=== PATIENT | female | born 1995 | race Caucasian/White ===

== ENCOUNTER → 2017-01-19 | Outpatient (REF) | payer BC | LOC: M LAB REF 16:35 | PROVIDERS: ATTEND Physician Assistant Medical | DX: J02.9 Acute pharyngitis, unspecified (principal) ==

== ENCOUNTER 2017-03-02 11:17 | Emergency (ER) | payer BC ==
[~2017-03-02] VITALS: Ht 157.5 cm; Wt 59.9 kg
[2017-03-02 11:18] VITALS: BP 147/79
[2017-03-02] MEDS ORDERED: NAPR500T PO (11:38)
== END 2017-03-02 11:51 | disposition home or self-care (01) ==
LOC: M ED 11:44
DX: G56.22 Lesion of ulnar nerve, left upper limb (principal)

== ENCOUNTER → 2017-03-20 | Outpatient (CLI) | payer BC ==
[~2017-03-20] MED LIST: NAPR500T PO
--- NOTE | 2017-03-21 09:08 | REP ---
MRI RIGHT FEMUR WITH AND WITHOUT CONTRAST: TECHNIQUE: Multiple sequences obtained pre- and post IV administration of 12 mL of Gadolinium. Reportedly there is a palpable abnormality anteriorly and the area is marked on the skin. Underlying soft tissues demonstrate no abnormal signal or enhancement. Musculature of the thigh is normal in signal with no tear. There is no cystic or solid or enhancing mass. The underlying femur demonstrates normal marrow signal with no bone marrow edema or occult fracture. There is no abnormal marrow enhancement. IMPRESSION: Negative MRI right thigh and femur with and without contrast. No evidence of mass. Signed by Augustus Chance MD 03/21/2017 03:11 P
== END ==
LOC: M RAD 17:17
PROVIDERS: ATTEND Specialist
DX: R22.41 Localized swelling, mass and lump, right lower limb (principal)
CPT/HCPCS: 73720; A9576

== ENCOUNTER → 2017-03-31 | Outpatient (CLI) | payer BC ==
[~2017-03-31] MED LIST changes: +DOXY-278 PO; +FLAG500T PO; +VALT1TAB PO
--- NOTE | 2017-04-02 13:59 | REP ---
MRI STUDY LEFT ELBOW WITHOUT CONTRAST: HISTORY: Left elbow pain. No known injury. Comparison radiographs are from March 18, 2017. There are TECHNIQUE: Sagittal axial and coronal imaging planes are utilized. T1 and T2-weighted scans were obtained with and without fat saturation. MRI FINDINGS: Cortical and medullary bone signal intensity are normal. There is no evidence of joint effusion. No osteochondral defect lesion is appreciated. There is no MR evidence of medial or lateral collateral ligament disruption. The triceps biceps and brachialis tendons are intact. No vascular abnormality is seen. Skeletal muscle signal intensity is normal on T1 and T2-weighted scans. There is no evidence of accessory muscle or ulnar nerve entrapment. IMPRESSION: No abnormality noted. Signed by Parish Szymanski MD 04/02/2017 05:03 P
== END ==
LOC: M RAD 13:22
PROVIDERS: ATTEND Specialist
DX: M25.522 Pain in left elbow (principal)

== ENCOUNTER → 2017-06-05 | Outpatient (REF) | payer BC | LOC: M LAB REF 09:40 | PROVIDERS: ATTEND Physician Assistant | DX: N39.0 Urinary tract infection, site not specified (principal) ==

== ENCOUNTER → 2017-06-24 | Outpatient (REF) | payer BC | LOC: M LAB REF 12:55 | PROVIDERS: ATTEND Physician Assistant Medical | DX: R30.0 Dysuria (principal) ==

== ENCOUNTER 2017-07-04 02:43 | Emergency (ER) | payer BC ==
[~2017-07-04] VITALS: Ht 157.5 cm; Wt 59.1 kg
[~2017-07-04 02:43] MED LIST changes: -DOXY-278 PO; -FLAG500T PO; -VALT1TAB PO
[2017-07-04 02:49] VITALS: BP 136/88
[2017-07-04] MEDS ORDERED: VALT1TAB PO (04:13)
[2017-07-04] MEDS ORDERED: DOXY-278 PO (04:13)
[2017-07-04] MEDS ORDERED: cefTRIAXone SOD 500 MG VIAL (J0696) IM ONE (04:15)
[2017-07-04] MEDS ORDERED: valACYclovir HCL 500 MG TAB PO ONE (04:15)
[2017-07-04] MEDS ORDERED: AZITHROMYCIN 250 MG TAB PO ONE (04:15)
[2017-07-04] MEDS ORDERED: FLAG500T PO (05:08)
== END 2017-07-04 05:31 | disposition home or self-care (01) ==
LOC: M ED 02:43
DX: A60.09 Herpesviral infection of other urogenital tract (principal); N76.0 Acute vaginitis
CPT/HCPCS: 81001; 87088; 87210; 87255; 87491; 87591; 96372; 99282; J0696

== ENCOUNTER → 2018-02-09 | Outpatient (REF) | payer BC ==
[2018-02-09 17:20] LABS: INR 0.96; PROTHROMBIN TIME 12.9 SECONDS (12.4-14.5)
[2018-02-09 17:21] LABS: PARTIAL THROMBOPLASTIN TIME 30.4 SECONDS (26.8-37.9)
[2018-02-09 18:09] LABS: SLIDE REVIEW Report; SOURCE PERIPHERAL SMEAR
== END ==
LOC: M LAB REF 16:40
DX: K06.8 Other specified disorders of gingiva and edentulous alveolar ridge (principal)
CPT/HCPCS: 85610

== ENCOUNTER → 2018-11-17 | Outpatient (REF) | payer BC ==
[~2018-11-17] MED LIST changes: +DOXY-350 PO; +FLAG500T PO; +NAPR-50 PO; -NAPR500T PO; +VALT1TAB PO
[2018-11-17 20:40] LABS: BASO % 0.3 % (0.0-1.0); EOS % 0.3 % (0.0-3.0); HEMATOCRIT 38.4 % (36.0-47.0); HEMOGLOBIN 13.1 g/dl (12.0-15.5); LYMPH # 1.4 10^3/uL (1.5-6.5); LYMPH % 14.6 % (24.0-44.0); MEAN CORPUSCULAR HEMOGLOBIN 29.4 pg (27.0-33.0); MEAN CORPUSCULAR HGB CONC 34.1 g/dl (32.0-36.5); MEAN CORPUSCULAR VOLUME 86.1 fl (80.0-96.0); MONO # 0.5 10^3/uL (0.0-0.8); NEUTROPHILS # 7.6 10^3/uL (1.8-7.7); NEUTROPHILS % 79.5 % (36.0-66.0); PLATELET COUNT, AUTOMATED 289 10^3/uL (150-450); RED BLOOD COUNT 4.46 10^6/uL (4.00-5.40); WHITE BLOOD COUNT 9.6 10^3/uL (4.0-10.0)
[2018-11-17 23:16] LABS: CHLAMYDIA DNA AMPLIFICATION NEGATIVE (NEGATIVE); GC DNA AMPLIFICATION NEGATIVE (NEGATIVE)
[2018-11-18 10:10] LABS: HEPATITIS C VIRUS ABY INDEX < 0.0 INDEX (<0.8); HIV 1&2 SCREEN CENTAUR NEGATIVE (NEGATIVE); RUBELLA IgG QUALITATIVE IMMUNE (IMMUNE)
== END ==
LOC: M LABDRWAD 19:10
PROVIDERS: ATTEND Advanced Practice Midwife
DX: Z3A.08 8 weeks gestation of pregnancy (principal); Z34.81 Encounter for supervision of other normal pregnancy, first trimester

== ENCOUNTER → 2019-01-25 | Outpatient (CLI) | payer BC ==
[~2019-01-25] MED LIST changes: -NAPR-50 PO; +NAPR-837 PO
--- NOTE | 2019-01-26 03:24 | REP ---
Clinical: Anatomical evaluation. Comparison: None . Findings: Examination demonstrates a single live intrauterine in cephalic presentation. motion is identified by technologist. Placenta is noted posterior fundal and grade grade 1 without evidence for placenta previa or abruption. Amniotic fluid volume is normal. Cervix measures 2.8 cm in length and appears closed. No evidence for nuchal cord. Gestational age by LMP 20 weeks 5 days with JULI 06/09/2019 . Gestational age by current measurements 20 weeks 3 days with JULI 06/11/2019 . FHR equals 156 beats per minute. BPD 4.8 cm 20 weeks 3 days HC 18.0 cm 20 weeks 3 days AC 15.6 cm 20 weeks 5 days FL 3.3 cm 20 weeks 3 days HL 3.1 cm 20 weeks 2 days HC/AC ratio 1.15 Estimated weight or 364 grams ( 43rd percentile). Anatomical assessment demonstrates normal structures including cranium, choroid plexus, cavum, cerebellum/posterior fossa, facial features, lungs, four-chamber heart/ventricular outflow tracts, diaphragm, stomach, cord insertion/three-vessel cord, kidneys/bladder, spine, and extremities. A trace amount of pericardial fluid is identified. Impression: 1. Single live intrauterine in cephalic presentation demonstrating appropriate interval growth. 2. Trace amount of pericardial fluid is identified. Anatomical assessment is otherwise complete and within normal limits. Electronically Signed by Freedom Iglesias MD 01/26/2019 03:15 A
== END ==
LOC: M RAD 14:13
PROVIDERS: ATTEND Specialist
DX: Z34.82 Encounter for supervision of other normal pregnancy, second trimester (principal); Z3A.00 Weeks of gestation of pregnancy not specified

== ENCOUNTER → 2019-02-05 | Outpatient (REF) | payer BC | LOC: M LAB REF 12:13 | PROVIDERS: ATTEND Physician Assistant Medical | DX: J02.9 Acute pharyngitis, unspecified (principal) ==

== ENCOUNTER → 2019-03-02 | Outpatient (CLI) | payer BC ==
[2019-03-02 18:36] LABS: BASO % 0.3 % (0.0-1.0); EOS # 0.1 10^3/uL (0.0-0.50); EOS % 1.3 % (0.0-3.0); HEMATOCRIT 34.6 % (36.0-47.0); HEMOGLOBIN 11.7 g/dl (12.0-15.5); LYMPH # 1.1 10^3/uL (1.5-6.5); LYMPH % 12.1 % (24.0-44.0); MEAN CORPUSCULAR HEMOGLOBIN 31.5 pg (27.0-33.0); MEAN CORPUSCULAR HGB CONC 33.8 g/dl (32.0-36.5); MONO # 0.5 10^3/uL (0.0-0.8); MONO % 5.6 % (0.0-5.0); NEUTROPHILS # 7.3 10^3/uL (1.8-7.7); NEUTROPHILS % 80.3 % (36.0-66.0); PLATELET COUNT, AUTOMATED 302 10^3/uL (150-450); RED BLOOD COUNT 3.72 10^6/uL (4.00-5.40); WHITE BLOOD COUNT 9.2 10^3/uL (4.0-10.0)
== END ==
LOC: M SMT 13:09
PROVIDERS: ATTEND Specialist
DX: Z34.82 Encounter for supervision of other normal pregnancy, second trimester (principal); Z36.89 Encounter for other specified antenatal screening
CPT/HCPCS: 36415; 82950; 85025; 86850; 86900; 86901; J2790

== ENCOUNTER → 2019-04-06 | Outpatient (REF) | payer BC ==
[2019-04-06 19:48] LABS: APPEARANCE, URINE HAZY (CLEAR); BACTERIA, URINE AUTO 2+ (NEGATIVE); BILIRUBIN, URINE AUTO NEGATIVE (NEGATIVE); BLOOD, URINE BLOOD 1+ (NEGATIVE); COLOR, URINE YELLOW (YELLOW); GLUCOSE, URINE (UA) AUTO NEGATIVE (NEGATIVE); KETONE, URINE AUTO NEGATIVE (NEGATIVE); LEUKOCYTE ESTERASE, URINE AUTO TRACE (NEGATIVE); MUCUS, URINE SMALL (NEGATIVE); NITRITE, URINE AUTO NEGATIVE (NEGATIVE); PROTEIN, URINE AUTO NEGATIVE (NEGATIVE); RBC, URINE AUTO 4 /HPF (0-3); SPECIFIC GRAVITY URINE AUTO 1.009 (1.002-1.035); SQUAMOUS EPITHELIAL CELL UR AU 2 /HPF (0-6); UROBILINOGEN, URINE AUTO 0.2 mg/dL (0.0-2.0); WBC, URINE AUTO 21 /HPF (0-3)
== END ==
LOC: M LAB REF 17:34
PROVIDERS: ATTEND Obstetrics & Gynecology
DX: M54.5 Low back pain (principal)

== ENCOUNTER → 2019-04-07 | Outpatient (CLI) | payer BC ==
--- NOTE | 2019-04-07 07:23 | REP ---
Clinical: Lower back pain. Technique: Real time patricio scale and color evaluation using curved array transducer. Findings: Right kidney is normal in reniform shape and measures 10.4 x 4.8 x 5.0 cm with moderate hydronephrosis. No nephrolithiasis, cystic or mass lesion. RI 0.59. Left kidney is normal in reniform shape and measures 10.4 x 4.5 x 5.5 cm with mild hydronephrosis. No nephrolithiasis, cystic or mass lesion. RI 0.41. Bladder is unremarkable. The patient is noted to be 31 weeks . Impression: Bilateral hydronephrosis (right greater than left) likely induced. Electronically Signed by Freedom Iglesias MD 04/07/2019 07:14 A
== END ==
LOC: M RAD 05:58
PROVIDERS: ATTEND Obstetrics & Gynecology
DX: N13.30 Unspecified hydronephrosis (principal); M54.5 Low back pain

== ENCOUNTER → 2019-04-27 | Outpatient (REF) | payer BC | LOC: M LAB REF 13:02 | PROVIDERS: ATTEND Advanced Practice Midwife | DX: Z34.83 Encounter for supervision of other normal pregnancy, third trimester (principal) ==

== ENCOUNTER → 2019-05-11 | Outpatient (REF) | payer BC ==
[~2019-05-11] MED LIST changes: +COLA100C5 PO; +IBUP80TA PO; +PERCOCET PO; +PREN29TA4 PO; +RANI15TA PO; +URSO300C3 PO
== END ==
LOC: M LAB REF 17:49
PROVIDERS: ATTEND Advanced Practice Midwife
DX: Z34.83 Encounter for supervision of other normal pregnancy, third trimester (principal)

== ENCOUNTER → 2019-05-13 | Outpatient (CLI) | payer BC ==
[~2019-05-13] MED LIST changes: -COLA100C5 PO; -IBUP80TA PO; -PERCOCET PO; -URSO300C3 PO
[2019-05-13 10:28] LABS: ALBUMIN 2.6 GM/DL (3.2-5.2); BASO % 0.6 % (0.0-1.0); BILIRUBIN,DIRECT 0.2 MG/DL (0.0-0.2); BILIRUBIN,TOTAL 0.6 MG/DL (0.2-1.0); EOS # 0.1 10^3/uL (0.0-0.50); EOS % 0.7 % (0.0-3.0); HEMATOCRIT 32.6 % (36.0-47.0); LYMPH # 1.1 10^3/uL (1.5-6.5); LYMPH % 16.2 % (24.0-44.0); MEAN CORPUSCULAR HEMOGLOBIN 28.4 pg (27.0-33.0); MEAN CORPUSCULAR HGB CONC 33.7 g/dl (32.0-36.5); MONO # 0.6 10^3/uL (0.0-0.8); MONO % 8.2 % (0.0-5.0); NEUTROPHILS # 5.1 10^3/uL (1.8-7.7); NEUTROPHILS % 73.9 % (36.0-66.0); PLATELET COUNT, AUTOMATED 292 10^3/uL (150-450); RED BLOOD COUNT 3.88 10^6/uL (4.00-5.40); TOTAL PROTEIN 6.5 GM/DL (6.4-8.2); WHITE BLOOD COUNT 6.9 10^3/uL (4.0-10.0)
== END ==
LOC: M LAB 09:11
PROVIDERS: ATTEND Advanced Practice Midwife
DX: L29.9 Pruritus, unspecified (principal)

== ENCOUNTER 2019-05-28 07:22 | Inpatient (IN) | payer BC, MEDICAID ==
[~2019-05-28] VITALS: Ht 157.5 cm; Wt 62.4 kg
[~2019-05-28 07:22] MED LIST changes: +MORPHINE PRES-FREE INJ 10 MG/10 ML VIAL (J2274) As Ordered ONE; +OXYTOCIN INJ 10 UNITS/ML VIAL (J2590) As Ordered ONE
[2019-05-28] MEDS ORDERED: URSO300C3 PO (07:51)
[2019-05-28] MEDS ORDERED: LR 1,000 ML IV SCH ×2 (08:13→11:15)
[2019-05-28] MEDS ORDERED: LACTATED RINGER'S 1000 ML IV STA (08:13)
[2019-05-28 08:38] LABS: HEMATOCRIT 32.9 % (36.0-47.0); HEMOGLOBIN 10.9 g/dl (12.0-15.5); MEAN CORPUSCULAR HEMOGLOBIN 27.3 pg (27.0-33.0); MEAN CORPUSCULAR HGB CONC 33.1 g/dl (32.0-36.5); MEAN CORPUSCULAR VOLUME 82.5 fl (80.0-96.0); PLATELET COUNT, AUTOMATED 298 10^3/uL (150-450); RED BLOOD COUNT 3.99 10^6/uL (4.00-5.40); WHITE BLOOD COUNT 7.1 10^3/uL (4.0-10.0)
[2019-05-28] MEDS ORDERED: BICITRA 30ML SOLN UDC PO ONE (09:00)
[2019-05-28] MEDS ORDERED: NALBUPHINE HCL 10 MG/ML AMP (J2300) IV PRN (09:34)
[2019-05-28] MEDS ORDERED: diphenhydrAMINE INJ 50MG/ML VIAL (J1200) IV PRN (09:34)
[2019-05-28] MEDS ORDERED: ONDANSETRON 4MG/2ML VIAL (J2405) IV PRN ×3 (09:34→11:15)
[2019-05-28] MEDS ORDERED: NALOXONE INJ 0.4 MG/1 ML VIAL (J2310) IV PRN ×2 (09:34)
[2019-05-28] MEDS ORDERED: OXYTOCIN DRIP 30 UNITS in APPROPRIATE DILUENT 1 EA IV SCH (10:36)
[2019-05-28] MEDS ORDERED: PERCOCET 5MG/325MG TAB PO PRN (10:45)
[2019-05-28] MEDS ORDERED: RHOGAM 300 MCG (1500 IU) INJ (J2790) IM SCH (10:45)
[2019-05-28] MEDS ORDERED: PROMETHAZINE 25 MG TAB PO PRN (10:45)
[2019-05-28] MEDS ORDERED: MEASLES,MUMPS,RUBELLA VACCINE INJ (MMR-II) (90707) SC SCH (10:45)
[2019-05-28] MEDS ORDERED: ACETAMINOPHEN 500 MG TAB PO PRN (10:45)
[2019-05-28] MEDS ORDERED: COLA100C5 PO (10:53)
[2019-05-28] MEDS ORDERED: IBUP80TA PO (10:53)
[2019-05-28] MEDS ORDERED: PERCOCET PO (10:53)
[2019-05-28] MEDS ORDERED: OXYTOCIN 30 UNITS IN 0.9% NaCl 500ML IV BAG (J2590) As Ordered ONE (11:05)
[2019-05-28] MEDS ORDERED: KETOROLAC 30 MG/ML VIAL (J1885) IV PRN (11:15)
[2019-05-28] MEDS ORDERED: ACETAMINOPHEN TAB 650MG DOSE (2X325MG) PO PRN (11:15)
[2019-05-28] MEDS ORDERED: oxyCODONE 5MG TAB PO PRN (11:15)
[2019-05-28] MEDS ORDERED: fentaNYL 100 MCG/2 ML INJECTION (J3010) As Ordered ONE (11:35)
[2019-05-28] MEDS: fentaNYL 100 MCG/2 ML INJECTION (J3010) IV PRN ×3 (11:40→11:53)
[2019-05-28] MEDS ORDERED: KETOROLAC 30 MG/ML VIAL (J1885) As Ordered ONE (11:47)
[2019-05-28] MEDS: KETOROLAC 30 MG/ML VIAL (J1885) IV SCH ×2 (11:50→18:11)
[2019-05-28] MEDS: LR 1,000 ML IV SCH ×2 (12:07→20:33)
[2019-05-28 12:30] VITALS: BP 135/78
[2019-05-28 13:00] VITALS: BP 128/80
[2019-05-28] MEDS: METOCLOPRAMIDE INJ 10MG/2ML VIAL (J2765) IV PRN ×2 (13:49→20:32)
[2019-05-28 14:01] VITALS: BP 128/58
[2019-05-28 15:00] VITALS: BP 105/54
[2019-05-28 18:00] VITALS: BP 120/64
[2019-05-28] MEDS: DOCUSATE SODIUM 100 MG CAP PO SCH (20:33)
[2019-05-28 22:00] VITALS: BP 107/66
[2019-05-29] MEDS: KETOROLAC 30 MG/ML VIAL (J1885) IV SCH ×2 (00:15→05:51)
[2019-05-29 02:00] VITALS: BP 102/70
[2019-05-29] MEDS: LR 1,000 ML IV SCH (03:28)
[2019-05-29 06:00] VITALS: BP 102/58
[2019-05-29 06:59] LABS: HEMATOCRIT 26.3 % (36.0-47.0); MEAN CORPUSCULAR HEMOGLOBIN 27.9 pg (27.0-33.0); MEAN CORPUSCULAR HGB CONC 32.3 g/dl (32.0-36.5); MEAN CORPUSCULAR VOLUME 86.2 fl (80.0-96.0); PLATELET COUNT, AUTOMATED 199 10^3/uL (150-450); RED BLOOD COUNT 3.05 10^6/uL (4.00-5.40); WHITE BLOOD COUNT 8.3 10^3/uL (4.0-10.0)
[2019-05-29 07:05] LABS: HEMOGLOBIN 8.5 g/dl (12.0-15.5)
--- NOTE | 2019-05-29 08:47 | IPNPDOC ---
Text Note Date of Service The patient was seen on 05/29/19. NOTE Postop Day 1 s/p primary LTCS; complicated by intrahepatic cholestasis of , history of neurosurgery; Valsalva maternal pushing efforts contraindicated S: No events overnight. Pain well controlled, lochia and bleeding decreasing, voiding spontaneously, ambulating without assistance, tolerating regular diet.Breast feeding. O: vitals stable Heart: RRR, no murmurs/gallops/rubs Lungs: CTA BL Abd: U-1 and firm Ext: no edema, nontender, Meghana's negative bilaterally A/P: 23 yo G1 now P1. day 1 s/p primary LTCS. Currently hemodynamically stable, afebrile, good pain control. Recovering well. -Routine care and advancement -Anticipate discharge tomorrow VS,Fishbone, I+O VS, Fishbone, I+O Laboratory Tests 05/29/19 06:15 Red Blood Count 3.05 L, Mean Corpuscular Volume 86.2, Mean Corpuscular Hemogl obin 27.9, Mean Corpuscular Hemoglobin Concent 32.3, Red Cell Distribution Width 12.3 Vital Signs Date Time Temp Pulse Resp B/P (MAP) Pulse Ox O2 Delivery O2 Flow Rate FiO2 05/29/19 06:00 99.9 73 16 102/58 (73) 97 I&O- Last 24 Hours up to 6 AM 05/29/19 05:59 Intake Total 2660 ml Output Total 1900 ml Balance 760 ml GME ATTESTATION GME ATTESTATION My faculty preceptor for this patient encounter was physically present during the encounter and was fully available. All aspects of the patient interview, examination, medical decision making process, and medical care plan development were reviewed and approved by the faculty preceptor. The faculty preceptor is aware and concurs with the plan as stated in the body of this note and will attest to such by his/her cosignature. STACEY GREEN DO May 29, 2019 08:47
[2019-05-29] MEDS: PRENATAL VITAMINS CHEWABLE TABLET PO SCH (09:00)
[2019-05-29] MEDS: DOCUSATE SODIUM 100 MG CAP PO SCH ×2 (09:29→21:44)
[2019-05-29] MEDS: PERCOCET 5MG/325MG TAB PO PRN (12:17)
[2019-05-29 14:00] VITALS: BP 114/77
[2019-05-29] MEDS: IBUPROFEN 800 MG TAB PO SCH ×2 (15:17→21:55)
[2019-05-29 18:26] VITALS: BP 114/74
[2019-05-29] MEDS ORDERED: SIMETHICONE 80 MG CHEW TAB PO PRN (21:15)
[2019-05-29 22:46] VITALS: BP 129/84
[2019-05-30] MEDS: PERCOCET 5MG/325MG TAB PO PRN ×2 (00:53→15:40)
[2019-05-30 02:19] VITALS: BP 113/69
[2019-05-30] MEDS: IBUPROFEN 800 MG TAB PO SCH ×2 (05:38→13:26)
[2019-05-30 05:40] VITALS: BP 131/81
[2019-05-30] MEDS: PRENATAL VITAMINS CHEWABLE TABLET PO SCH (10:45)
[2019-05-30] MEDS: DOCUSATE SODIUM 100 MG CAP PO SCH (10:45)
--- NOTE | 2019-05-30 14:41 | DSES ---
DATE OF ADMISSION: 05/28/2019 DATE OF DISCHARGE: HISTORY: 23-year-old G1 at 38 plus weeks gestation presents for primary section. 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 It was requested by her neurosurgeon that she not labor due to risk of brain injury. HOSPITAL COURSE: On 05/28/2019, the patient underwent primary section for a 6-auklu-7-ounce female . The procedure was without complication. Her postoperative course was unremarkable. She had adequate return of bladder and bowel function. Her postoperative hemoglobin was 8.5 gm/dL. She was deemed stable for discharge on postoperative day #2. ADMISSION DIAGNOSIS: , term. History of intracranial surgery. DISCHARGE DIAGNOSIS: Delivered. PROCEDURE: Primary low transverse section. DISPOSITION: Patient will followup with Dr. Loaiza in 2 weeks. Instructions were reviewed.
== END 2019-05-30 17:30 | disposition home or self-care (01) | DRG 540 ==
LOC: M LDI 07:22 → M OBS 12:19
PROVIDERS: ADMIT Obstetrics & Gynecology; ATTEND Obstetrics & Gynecology
PROC: 10D00Z1 Extraction of Products of Conception, Low, Open Approach (ICD-10-PCS; principal; 2019-05-28 09:30)
DX: O26.62 Liver and biliary tract disorders in childbirth (principal); Z3A.38 38 weeks gestation of pregnancy; Z37.0 Single live birth; Z87.74 Personal history of (corrected) congenital malformations of heart and circulatory system

== ENCOUNTER → 2021-01-15 | Outpatient (REF) | payer BC, MEDICAID ==
[~2021-01-15] MED LIST changes: +COLA100C5 PO; +IBUP80TA PO; -MORPHINE PRES-FREE INJ 10 MG/10 ML VIAL (J2274) As Ordered ONE; -OXYTOCIN INJ 10 UNITS/ML VIAL (J2590) As Ordered ONE; +PERCOCET PO; +URSO300C3 PO
[2021-01-17 15:04] LABS: CHLAMYDIA DNA AMPLIFICATION NEGATIVE (NEGATIVE); GC DNA AMPLIFICATION NEGATIVE (NEGATIVE)
== END ==
LOC: M LAB REF 13:16 → M SFHCWAGY 13:16
PROVIDERS: ATTEND Obstetrics & Gynecology
DX: Z12.4 Encounter for screening for malignant neoplasm of cervix (principal); Z11.3 Encounter for screening for infections with a predominantly sexual mode of transmission; R87.610 Atypical squamous cells of undetermined significance on cytologic smear of cervix (ASC-US)
CPT/HCPCS: 87624; 87661; G0123

== ENCOUNTER → 2022-10-08 | Outpatient (CLI) | payer BC, MEDICAID ==
[~2022-10-08] MED LIST changes: -DOXY-350 PO; +DOXY-444 PO
== END ==
LOC: M PLALAB 14:50
PROVIDERS: ATTEND Obstetrics & Gynecology
DX: Z34.80 Encounter for supervision of other normal pregnancy, unspecified trimester (principal)

== ENCOUNTER → 2022-10-09 | Outpatient (CLI) | payer BC, MEDICAID ==
[2022-10-09 15:26] LABS: HEMATOCRIT 40.6 % (36.0-47.0); HEMOGLOBIN 13.9 g/dl (12.0-15.5); MEAN CORPUSCULAR HGB CONC 34.2 g/dl (32.0-36.5); MEAN CORPUSCULAR VOLUME 84.8 fl (80.0-96.0); PLATELET COUNT, AUTOMATED 322 10^3/uL (150-450); RED BLOOD COUNT 4.79 10^6/uL (4.00-5.40); WHITE BLOOD COUNT 10.8 10^3/uL (4.0-10.0)
[2022-10-09 16:25] LABS: HIV 1&2 SCREEN CENTAUR NEGATIVE (NEGATIVE)
[2022-10-09 16:33] LABS: HEPATITIS C VIRUS ABY INDEX 0.1 INDEX (<0.8)
[2022-10-09 17:12] LABS: GC DNA AMPLIFICATION NEGATIVE (NEGATIVE)
== END ==
LOC: M PLALAB 12:57
PROVIDERS: ATTEND Obstetrics & Gynecology
DX: Z34.80 Encounter for supervision of other normal pregnancy, unspecified trimester (principal)

== ENCOUNTER → 2022-12-10 | Outpatient (CLI) | payer BC | LOC: M WHC 07:22 | PROVIDERS: ATTEND Advanced Practice Midwife | DX: O34.211 Maternal care for low transverse scar from previous cesarean delivery (principal); O32.1XX0 Maternal care for breech presentation, not applicable or unspecified; Z3A.21 21 weeks gestation of pregnancy ==

== ENCOUNTER → 2022-12-25 | Outpatient (CLI) | payer BC | LOC: M RAD 15:09 | PROVIDERS: ATTEND Student in an Organized Health Care Education/Training Program | DX: R22.42 Localized swelling, mass and lump, left lower limb (principal) ==

== ENCOUNTER → 2022-12-25 | Outpatient (CLI) | payer BC | LOC: M WUC 14:14 | PROVIDERS: ATTEND Student in an Organized Health Care Education/Training Program | DX: M79.672 Pain in left foot (principal) ==

== ENCOUNTER → 2022-12-26 | Outpatient (REF) | payer BC ==
[2022-12-26 17:50] LABS: HEMATOCRIT 39.1 % (36.0-47.0); HEMOGLOBIN 13.1 g/dl (12.0-15.5); MEAN CORPUSCULAR HEMOGLOBIN 29.9 pg (27.0-33.0); MEAN CORPUSCULAR HGB CONC 33.5 g/dl (32.0-36.5); MEAN CORPUSCULAR VOLUME 89.3 fl (80.0-96.0); PLATELET COUNT, AUTOMATED 362 10^3/uL (150-450); RED BLOOD COUNT 4.38 10^6/uL (4.00-5.40); WHITE BLOOD COUNT 15.1 10^3/uL (4.0-10.0)
[2022-12-26 18:10] LABS: BLOOD UREA NITROGEN 6 MG/DL (9-23); CARBON DIOXIDE LEVEL 28 MMOL/L (20-31); CHLORIDE LEVEL 103 MMOL/L (98-107); CREATININE FOR GFR 0.46 MG/DL (0.55-1.30); GLOMERULAR FILTRATION RATE > 60.0 (>60); GLUCOSE, FASTING 70 MG/DL (60-100); POTASSIUM SERUM 5.2 MMOL/L (3.5-5.1); SODIUM LEVEL 136 MMOL/L (136-145)
== END ==
LOC: M SFHCADAM 14:18
PROVIDERS: ATTEND Family Medicine
DX: M10.9 Gout, unspecified (principal)

== ENCOUNTER → 2023-01-13 | Outpatient (CLI) | payer BC ==
[2023-01-13 15:52] LABS: HEMATOCRIT 37.3 % (36.0-47.0); HEMOGLOBIN 12.1 g/dl (12.0-15.5); MEAN CORPUSCULAR HEMOGLOBIN 29.7 pg (27.0-33.0); MEAN CORPUSCULAR HGB CONC 32.4 g/dl (32.0-36.5); MEAN CORPUSCULAR VOLUME 91.4 fl (80.0-96.0); PLATELET COUNT, AUTOMATED 284 10^3/uL (150-450); RED BLOOD COUNT 4.08 10^6/uL (4.00-5.40); WHITE BLOOD COUNT 10.3 10^3/uL (4.0-10.0)
== END ==
LOC: M PLALAB 09:32
PROVIDERS: ATTEND Obstetrics & Gynecology
DX: O34.211 Maternal care for low transverse scar from previous cesarean delivery (principal); Z3A.00 Weeks of gestation of pregnancy not specified
CPT/HCPCS: 36415; 82950; 85027; 86850; 86900; 86901; J2790

== ENCOUNTER → 2023-02-21 | Outpatient (CLI) | payer BC ==
[2023-02-21 16:25] LABS: APPEARANCE, URINE CLEAR (CLEAR); BACTERIA, URINE AUTO NEGATIVE (NEGATIVE); BILIRUBIN, URINE AUTO NEGATIVE (NEGATIVE); BLOOD, URINE BLOOD NEGATIVE (NEGATIVE); COLOR, URINE AMBER (YELLOW); GLUCOSE, URINE (UA) AUTO NEGATIVE (NEGATIVE); KETONE, URINE AUTO NEGATIVE (NEGATIVE); LEUKOCYTE ESTERASE, URINE AUTO 1+ (NEGATIVE); MUCUS, URINE SMALL (NEGATIVE); NITRITE, URINE AUTO NEGATIVE (NEGATIVE); PROTEIN, URINE AUTO NEGATIVE (NEGATIVE); RBC, URINE AUTO 1 /HPF (0-3); SPECIFIC GRAVITY URINE AUTO 1.006 (1.002-1.035); SQUAMOUS EPITHELIAL CELL UR AU 0 /HPF (0-6); UROBILINOGEN, URINE AUTO 0.2 mg/dL (0.0-2.0); WBC, URINE AUTO 6 /HPF (0-3)
[2023-02-21 16:47] LABS: HEMATOCRIT 35.6 % (36.0-47.0); HEMOGLOBIN 11.8 g/dl (12.0-15.5); MEAN CORPUSCULAR HGB CONC 33.1 g/dl (32.0-36.5); MEAN CORPUSCULAR VOLUME 87.5 fl (80.0-96.0); PLATELET COUNT, AUTOMATED 255 10^3/uL (150-450); RED BLOOD COUNT 4.07 10^6/uL (4.00-5.40); WHITE BLOOD COUNT 6.3 10^3/uL (4.0-10.0)
[2023-02-21 16:53] LABS: ALBUMIN 2.6 G/DL (3.2-5.2); BILIRUBIN,DIRECT 0.6 MG/DL (<0.4); BILIRUBIN,TOTAL 1.1 MG/DL (0.3-1.2); TOTAL PROTEIN 6.2 G/DL (5.7-8.2)
== END ==
LOC: M PLALAB 13:58
PROVIDERS: ATTEND Advanced Practice Midwife
DX: L29.9 Pruritus, unspecified (principal)

== ENCOUNTER → 2023-03-05 | Outpatient (CLI) | payer BC | LOC: M WHC 12:56 | PROVIDERS: ATTEND Advanced Practice Midwife | DX: O26.613 Liver and biliary tract disorders in pregnancy, third trimester (principal); K83.1 Obstruction of bile duct; Z3A.33 33 weeks gestation of pregnancy ==

== ENCOUNTER → 2023-03-14 | Outpatient (REF) | payer BC | LOC: M SFHCWAGY 13:00 | PROVIDERS: ATTEND Advanced Practice Midwife | DX: Z36.85 Encounter for antenatal screening for Streptococcus B (principal) ==

== ENCOUNTER → 2023-03-21 | Outpatient (CLI) | payer BC ==
[~2023-03-21] MED LIST changes: +MULTTAB20 PO; +VALT500T PO; +VIST25CA PO
== END ==
LOC: M WHC 12:00
PROVIDERS: ATTEND Advanced Practice Midwife
DX: K83.1 Obstruction of bile duct (principal)

== ENCOUNTER 2023-04-02 07:08 | Inpatient (IN) | payer BC ==
[~2023-04-02] VITALS: Ht 157.5 cm; Wt 65.7 kg
[2023-04-02] VITALS (8 sets, daily range): BP systolic 100–144; BP diastolic 57–100; TEMP 98.9; O2SAT 96–97
[2023-04-02] MEDS ORDERED: LACTATED RINGER'S 1000 ML IV STA (07:46)
[2023-04-02] MEDS ORDERED: BICITRA 30ML SOLN UDC PO ONE (07:50)
[2023-04-02] MEDS ORDERED: ceFAZolin SOD 2 GM in IV 1 EA IV ONE (07:50)
[2023-04-02] MEDS ORDERED: LR 1,000 ML IV SCH ×2 (07:50→11:20)
[2023-04-02 07:59] LABS: HEMATOCRIT 36.5 % (36.0-47.0); HEMOGLOBIN 12.3 g/dl (12.0-15.5); MEAN CORPUSCULAR HEMOGLOBIN 27.5 pg (27.0-33.0); MEAN CORPUSCULAR HGB CONC 33.7 g/dl (32.0-36.5); MEAN CORPUSCULAR VOLUME 81.5 fl (80.0-96.0); PLATELET COUNT, AUTOMATED 265 10^3/uL (150-450); RED BLOOD COUNT 4.48 10^6/uL (4.00-5.40); WHITE BLOOD COUNT 6.1 10^3/uL (4.0-10.0)
[2023-04-02] MEDS: DOCUSATE SODIUM 100MG CAPSULE PO SCH ×2 (09:00→19:57)
[2023-04-02] MEDS: PRENATAL VITAMINS CHEWABLE TABLET PO SCH (09:00)
[2023-04-02] MEDS ORDERED: OXYTOCIN INJ 10UNITS/ML 1ML VIAL As Ordered ONE (09:48)
[2023-04-02] MEDS ORDERED: ONDANSETRON 4MG 2ML VIAL As Ordered ONE (09:48)
[2023-04-02] MEDS ORDERED: MORPHINE PRES-FREE INJ 10 MG/10 ML VIAL As Ordered ONE (09:48)
[2023-04-02] MEDS ORDERED: KETOROLAC 60MG 2ML VIAL As Ordered ONE (09:48)
[2023-04-02] MEDS ORDERED: OXYTOCIN 30UNITS IN 0.9% NaCl 500ML IV BAG As Ordered ONE ×2 (09:49→11:31)
[2023-04-02] MEDS ORDERED: ACETAMINOPHEN 1000MG 100ML IV BAG As Ordered ONE (09:49)
[2023-04-02] MEDS ORDERED: PHENYLephrine 500MCG 5ML (100MCG/ML) SYRINGE As Ordered ONE ×2 (09:49→10:24)
[2023-04-02] MEDS ORDERED: GLYCOPYRROLATE INJ 0.2 MG/ML 2 ML VIAL As Ordered ONE (10:23)
[2023-04-02] MEDS ORDERED: MORPHINE 4 MG/ML 1ML VIAL IV PRN (11:20)
[2023-04-02] MEDS ORDERED: ONDANSETRON 4MG 2ML VIAL IV PRN ×2 (11:20→11:35)
[2023-04-02] MEDS ORDERED: ANUSOL HC CREAM 30GM TOP PRN (11:20)
[2023-04-02] MEDS ORDERED: PERCOCET 5MG/325MG TAB PO PRN ×2 (11:20)
[2023-04-02] MEDS ORDERED: RHOGAM 300MCG (1500IU) INJ IM SCH (11:20)
[2023-04-02] MEDS ORDERED: OXYTOCIN DRIP 30 UNITS in IV 1 EA IV SCH (11:20)
[2023-04-02] MEDS ORDERED: METHYLERGONOVINE MALEATE 0.2MG/ML 1ML VIAL IM PRN (11:20)
[2023-04-02] MEDS ORDERED: COLA100C5 PO (11:28)
[2023-04-02] MEDS ORDERED: PERCOCET PO (11:28)
[2023-04-02] MEDS ORDERED: IBUP80TA PO (11:28)
[2023-04-02] MEDS ORDERED: NALOXONE INJ 0.4MG/1ML VIAL IV PRN ×2 (11:35)
[2023-04-02] MEDS ORDERED: MEPERIDINE 25 MG/ML 1ML VIAL IV PRN (11:35)
[2023-04-02] MEDS ORDERED: oxyCODONE 5MG TAB PO PRN (11:35)
[2023-04-02] MEDS: SLF 3 ML SYR IV SCH ×2 (11:35→19:58)
[2023-04-02] MEDS ORDERED: diphenhydrAMINE 50MG/ML VIAL IV PRN (11:35)
[2023-04-02] MEDS ORDERED: fentaNYL 100 MCG/2 ML INJECTION IV PRN (11:35)
[2023-04-02] MEDS ORDERED: HYDROMORPHONE HCL 0.5 MG/ 0.5 ML SYRINGE IV PRN (11:35)
[2023-04-02] MEDS ORDERED: METOCLOPRAMIDE INJ 10MG/2ML VIAL IV PRN (11:35)
[2023-04-02] MEDS ORDERED: ursodioL 300MG CAP PO PRN (11:35)
[2023-04-02] MEDS ORDERED: **NOTE PATIENT COMMENT** MISC XX SCH (11:35)
[2023-04-02] MEDS: ACETAMINOPHEN 500 MG TAB PO PRN (13:56)
[2023-04-02] MEDS: KETOROLAC 30 MG/ML 1ML VIAL IV SCH ×2 (17:19→22:31)
[2023-04-03 02:00] VITALS: BP 106/55; O2SAT 96
[2023-04-03] MEDS: SLF 3 ML SYR IV SCH (03:35)
[2023-04-03] MEDS: KETOROLAC 30 MG/ML 1ML VIAL IV SCH (04:59)
[2023-04-03 06:00] VITALS: BP 117/69; O2SAT 97
[2023-04-03 06:50] LABS: HEMATOCRIT 31.2 % (36.0-47.0); HEMOGLOBIN 10.4 g/dl (12.0-15.5); MEAN CORPUSCULAR HEMOGLOBIN 27.6 pg (27.0-33.0); MEAN CORPUSCULAR HGB CONC 33.3 g/dl (32.0-36.5); MEAN CORPUSCULAR VOLUME 82.8 fl (80.0-96.0); PLATELET COUNT, AUTOMATED 212 10^3/uL (150-450); RED BLOOD COUNT 3.77 10^6/uL (4.00-5.40); WHITE BLOOD COUNT 10.6 10^3/uL (4.0-10.0)
[2023-04-03] MEDS: DOCUSATE SODIUM 100MG CAPSULE PO SCH ×2 (08:28→20:11)
[2023-04-03] MEDS: ACETAMINOPHEN 500 MG TAB PO PRN ×3 (08:29→23:36)
[2023-04-03] MEDS: PRENATAL VITAMINS CHEWABLE TABLET PO SCH (08:29)
[2023-04-03 10:00] VITALS: BP 125/70; O2SAT 97
[2023-04-03] MEDS: IBUPROFEN 800 MG TAB PO SCH ×2 (12:27→20:12)
[2023-04-03 14:00] VITALS: BP 122/67; O2SAT 99
[2023-04-03 18:00] VITALS: BP 120/80; O2SAT 98
[2023-04-03] MEDS: SIMETHICONE 80MG CHEW TAB PO PRN (20:40)
[2023-04-03 22:00] VITALS: BP 126/75; O2SAT 97
[2023-04-04 02:00] VITALS: BP 123/77; O2SAT 97
[2023-04-04] MEDS: IBUPROFEN 800 MG TAB PO SCH (04:51)
[2023-04-04 05:43] VITALS: BP 123/84; O2SAT 97
[2023-04-04] MEDS: DOCUSATE SODIUM 100MG CAPSULE PO SCH (08:01)
[2023-04-04] MEDS: PRENATAL VITAMINS CHEWABLE TABLET PO SCH (08:01)
[2023-04-04] MEDS: SIMETHICONE 80MG CHEW TAB PO PRN (08:01)
[2023-04-04] MEDS ORDERED: MEASLES,MUMPS,RUBELLA VACCINE INJ (MMR-II) SC.IMMUN ONE (09:00)
[2023-04-04 10:00] VITALS: BP 134/79; O2SAT 96
== END 2023-04-04 11:33 | disposition home or self-care (01) | DRG 540 ==
LOC: M LDI 07:08 → M OBS 12:31
PROVIDERS: ADMIT Obstetrics & Gynecology; ATTEND Obstetrics & Gynecology
PROC: 10D00Z1 Extraction of Products of Conception, Low, Open Approach (ICD-10-PCS; principal; 2023-04-02 09:30)
DX: O34.211 Maternal care for low transverse scar from previous cesarean delivery (principal); K83.1 Obstruction of bile duct; O26.62 Liver and biliary tract disorders in childbirth; Z37.0 Single live birth; Z3A.37 37 weeks gestation of pregnancy

== ENCOUNTER → 2024-01-28 | Outpatient (REF) | payer BC ==
[~2024-01-28] MED LIST changes: +DOXY-440 PO; -DOXY-444 PO
== END ==
LOC: M SFHCWAGY 10:30
PROVIDERS: ATTEND Obstetrics & Gynecology
DX: Z12.4 Encounter for screening for malignant neoplasm of cervix (principal); Z77.9 Other contact with and (suspected) exposures hazardous to health; R87.615 Unsatisfactory cytologic smear of cervix

== ENCOUNTER → 2024-08-11 | Outpatient (REF) | payer BC | LOC: M SFHCWAGY 14:01 | PROVIDERS: ATTEND Obstetrics & Gynecology | DX: Z12.4 Encounter for screening for malignant neoplasm of cervix (principal) ==